=== PATIENT | male | born 1985 | race Two or more races ===

== ENCOUNTER 2017-05-27 00:45 | Emergency (ER) | payer SELFPAY ==
[~2017-05-27] VITALS: Ht 175.3 cm; Wt 128.5 kg
[2017-05-27 00:46] VITALS: BP 123/85
[2017-05-27] MEDS ORDERED: LIDOCAINE-MPF 2% ,5ML SQ ONE (02:30)
[2017-05-27] MEDS ORDERED: LIDOCAINE-MPF 2% ,5ML ONE ×2 (02:32)
[2017-05-27] MEDS ORDERED: DIPH,PERTUSS(ACELL),TET VAC/PF 0.5 ML IM-VACC ONE ×2 (02:53→03:30)
[2017-05-27] MEDS ORDERED: ACETAMINOPHEN 500 MG TABLET ONE (04:22)
== END 2017-05-27 04:29 | disposition home or self-care (01) ==
LOC: ED 04:23
DX: S01.81XA Laceration without foreign body of other part of head, initial encounter (principal); W18.2XXA Fall in (into) shower or empty bathtub, initial encounter; Y93.89 Activity, other specified; Y92.098 Other place in other non-institutional residence as the place of occurrence of the external cause; Y99.8 Other external cause status
CPT/HCPCS: 12013; 90471; 90715